=== PATIENT | female | born 1980 | race Asian ===

== ENCOUNTER 2016-10-10 04:17 | Emergency (ER) | payer MEDICAID ==
--- NOTE | 2016-10-10 05:02 | ED Physician Chart ---
Chief Complaint/HPI - Patient Information Date Seen:: 10/10/16 Time Seen:: 04:00 Chief Complaint:: sore throat History of Present Illness:: Patient has had a sore throat for the last 5 days. She's also had a cough productive of green sputum. She's had no fever Allergies:: Allergies Allergy/AdvReac Type Severity Reaction Status Date / Time No Known Allergies Allergy Verified 10/10/16 04:33 Vitals:: Vital Signs - 8 hr 10/10/16 04:20 Temp 98.7 F HR 80 RR 18 BP 108/74 O2 Sat % 97 Historian:: Patient Review:: Nurse's Note Reviewed Review of Systems - Review of Systems General/Constitutional: No fever, No chills Skin: No skin lesions Head: No headache Eyes: No loss of vision ENT: Sore throat Neck: No neck pain, No swelling Cardio Vascular: No chest pain, No palpitations Pulmonary: No SOB GI: No nausea, No vomiting G/U: No dysuria Musculoskeletal: No bone or joint pain, No back pain Psychiatric: No prior psych history Hematopoietic: No bruising, No lymphadenopathy Allergic/Immuno: No urticaria, No angioedema Neurological: No syncope, No focal symptoms, No headache Past Medical History - Past Medical History Past Medical History: No significant medical hx Family History: None Social History: Smoker, No Alcohol, Other (smokes an occasional cigar) Surgical History: Appendectomy Psychiatricy History: None Medication: Reviewed Family Medical History - Family Member Mother History Unknown: Yes Physical Exam - Physical Examination General/Constitutional: Well-developed, well-nourished, Alert, No distress Head: Atraumatic Eyes: Lids, conjuctiva normal, PERRL Skin: Nl inspection, No rash, No skin lesions, No ecchymosis, Well hydrated, No lymphadenopathy ENMT: External ears, nose nl, TM canals nl, Nasal exam nl, Lips, teeth, gums nl , Tonsils nl Other ENMT comments:: Diffuse mild erythema of the throat. There is no tonsillar exudate. Tonsils are not enlarged Neck: No nuchal rigidity, No mass Other Neck comments:: No cervical adenopathy Respiratory: Nl effort/Exclusion, Clear to Auscultation Cardio Vascular: RRR, No murmur, gallop, rubs GI: No tenderness/rebounding/guarding, No organomegaly, No hernia, Normal BS's, Nondistended, No mass/bruits, No McBurney tenderness : No CVA tenderness Neuro/Psych: Alert/oriented, No focal deficits Misc: Normal back ED Septic Shock - . Is Septic Shock (SBP<90, OR Lactate>4 mmol\L) present?: No - <6hrs of presentation: Vital Signs: Vital Signs - 8 hr 10/10/16 04:20 Temp 98.7 F HR 80 RR 18 BP 108/74 O2 Sat % 97 Reassessment (Disposition) - Diagnosis Diagnosis:: Acute viral syndrome; Viral pharyngitis - Aftercare/Follow up Instructions Aftercare/Follow-Up Instructions:: Refer to Discharge Instructions - Patient Disposition Discharge/Transfer:: Home Condition at Disposition:: Stable, Unchanged ED Discharge Plan - Patient Disposition Instructions: Viral Pharyngitis Additional Instructions: CONTROL ANY PAIN OR DISCOMFORT. WITH OVER THE COUNTER MEDICATIONS. INCREASE YOUR FLUID INTAKE. FOLLOW UP WITH YOUR REGULAR DOCTOR IN 1-2 DAYS IF NOT FEELING ANY BETTER.
== END 2016-10-10 05:05 | disposition home or self-care (01) ==
LOC: ER 04:17
DX: J02.8 Acute pharyngitis due to other specified organisms (principal); B34.9 Viral infection, unspecified; F17.210 Nicotine dependence, cigarettes, uncomplicated; Z90.49 Acquired absence of other specified parts of digestive tract
CPT/HCPCS: Z7610